=== PATIENT | male | born 1955 | race Caucasian/White ===

== ENCOUNTER → 2017-01-16 | Outpatient (CLI) | payer BC ==
[~2017-01-16] MED LIST: ALEVE220 MG PO; AMLODIPINE BESY10 MG PO; ASPIR 8181 M1 PO; ATORVASTATIN CA20 MG PO; CHLORTHALIDONE25 MG PO; ENALAPRIL MALEA20 MG PO; FLEXERIL10 MG PO; GABAPENTIN600 MG PO; PERCOCET 7.51 TABLET PO; TYLENOL EXTRA500 MG PO; VASOTEC20 MG PO
== END | disposition home or self-care (01) ==
DX: M17.12 Unilateral primary osteoarthritis, left knee (principal); R26.2 Difficulty in walking, not elsewhere classified; M25.562 Pain in left knee; M25.662 Stiffness of left knee, not elsewhere classified; M62.81 Muscle weakness (generalized)
CPT/HCPCS: 97110 GP; 97150 GO; 97161 GP; 97165 GO

== ENCOUNTER 2017-01-29 08:40 | Inpatient (IN) | payer BC ==
[~2017-01-29] VITALS: Ht 185.4 cm; Wt 110.0 kg
[2017-01-29 09:24] VITALS: BP 11/77
[2017-01-29 14:20] LABS: HEMATOCRIT 33.2 % (38.0-50.0); MCH 29.2 PG (29.0-34.0); MCHC 32.8 G/DL (30.0-36.0); MEAN PLAT.VOLUME 12.2 uM^3 (9.0-12.4); PLATELET COUNT 177 K/uL (156-360); RBC DIS.WIDTH-CV 14.1 % (11.8-14.6); RBC DIS.WIDTH-SD 45.8 % (39-53); RED BLOOD COUNT 3.73 M/uL (4.00-5.50)
[2017-01-29 15:35] VITALS: BP 123/78
[2017-01-29 20:22] VITALS: BP 128/75
[2017-01-29 23:45] VITALS: BP 138/80
[2017-01-30 04:00] VITALS: BP 126/78
[2017-01-30 07:10] LABS: HEMATOCRIT 35.1 % (38.0-50.0); MCV 89.1 FL (86-99)
[2017-01-30 07:54] LABS: ANION GAP 7 MEQ/L (2-14); CHLORIDE 104 MEQ/L (99-109); GFR ESTIMATE (CALCULATED) > 59 mL/min/; GLUCOSE 128 mg/dL (70-99); POTASSIUM 4.2 MEQ/L (3.7-5.4); SAMPLE HEMOLYSIS CHECK 0; SAMPLE ICTERIC CHECK 0; SAMPLE LIPEMIA CHECK 0; SODIUM 136 MEQ/L (136-147); UREA NITROGEN (BUN) 14 mg/dL (9-23)
[2017-01-30 08:00] VITALS: BP 139/82
[2017-01-30 12:00] VITALS: BP 128/77
[2017-01-30 15:48] VITALS: BP 138/80
[2017-01-30 20:31] VITALS: BP 124/76
[2017-01-30 23:43] VITALS: BP 137/81
[2017-01-31 04:49] VITALS: BP 141/80
[2017-01-31 06:47] LABS: HEMATOCRIT 33.8 % (38.0-50.0); MCV 86.9 FL (86-99)
[2017-01-31 07:09] LABS: ANION GAP 9 MEQ/L (2-14); CHLORIDE 106 MEQ/L (99-109); GFR ESTIMATE (CALCULATED) > 59 mL/min/; GLUCOSE 98 mg/dL (70-99); POTASSIUM 3.9 MEQ/L (3.7-5.4); SAMPLE HEMOLYSIS CHECK 0; SAMPLE ICTERIC CHECK 0; SAMPLE LIPEMIA CHECK 0; SODIUM 136 MEQ/L (136-147); UREA NITROGEN (BUN) 14 mg/dL (9-23)
[2017-01-31 08:00] VITALS: BP 143/81
[2017-01-31] MEDS ORDERED: DOCUSATE SODIU100 MG PO (08:22)
[2017-01-31] MEDS ORDERED: ENDOCET 5-3251 EACH PO (08:22)
[2017-01-31] MEDS ORDERED: LOVENOX40 MG/0.4 SC (08:22)
[2017-01-31] MEDS ORDERED: CELECOXIB200 MG PO (08:22)
[2017-01-31 12:27] VITALS: BP 114/60
[2017-01-31 15:23] VITALS: BP 111/61
== END 2017-01-31 15:49 | DRG 470 ==
LOC: 2SOUTH → 3WEST 15:16
PROVIDERS: Orthopaedic Surgery; Physician Assistant
PROC: 0SRD0J9 Replacement of Left Knee Joint with Synthetic Substitute, Cemented, Open Approach (ICD-10-PCS; principal; 2017-01-29)
DX: M17.12 Unilateral primary osteoarthritis, left knee (principal); E78.00 Pure hypercholesterolemia, unspecified; I10 Essential (primary) hypertension; Z87.891 Personal history of nicotine dependence; Z83.3 Family history of diabetes mellitus; Z82.49 Family history of ischemic heart disease and other diseases of the circulatory system
CPT/HCPCS: 73560; 80048; 85014; 85018; 85027; 97530 GP; C1713; J0690; J1170; J1650; J2250; J2405; J3010; J7050

== ENCOUNTER 2017-08-06 22:06 | Inpatient (IN) | payer BC ==
[~2017-08-06] VITALS: Ht 185.4 cm; Wt 122.5 kg
[~2017-08-06 22:06] MED LIST changes: +ASPIRIN81 M2 PO; +CELEBREX200 MG PO; +CELECOXIB200 MG PO; +DOCUSATE SODIU100 MG PO; +ENDOCET 5-3251 EACH PO; +LOVENOX40 MG/0.4 SC
[2017-08-07 09:52] VITALS: BP 112/66
[2017-08-07 14:23] LABS: HEMATOCRIT 33.5 % (38.0-50.0); HEMOGLOBIN 10.9 G/DL (12.5-16.6); MCH 29.1 PG (29.0-34.0); MCHC 32.5 G/DL (30.0-36.0); MCV 89.6 FL (86-99); PLATELET COUNT 202 K/uL (156-360); RBC DIS.WIDTH-CV 13.6 % (11.8-14.6); RBC DIS.WIDTH-SD 44.8 % (39-53); RED BLOOD COUNT 3.74 M/uL (4.00-5.50); WHITE BLOOD COUNT 11.1 K/uL (4.1-10.2)
[2017-08-07 16:04] VITALS: BP 114/63
[2017-08-07 19:46] VITALS: BP 118/63
[2017-08-07 23:26] VITALS: BP 127/60
[2017-08-08 04:24] VITALS: BP 126/63
[2017-08-08 04:39] LABS: HEMATOCRIT 33.3 % (38.0-50.0); HEMOGLOBIN 11.3 G/DL (12.5-16.6); MCV 87.4 FL (86-99)
[2017-08-08 05:00] LABS: CHLORIDE 108 mEq/L (99-109); POTASSIUM 4.4 mEq/L (3.7-5.4); SODIUM 135 mEq/L (136-147)
[2017-08-08 05:02] LABS: GLUCOSE 129 mg/dL (70-99)
[2017-08-08 05:06] LABS: GFR ESTIMATE (CALCULATED) > 59 mL/min/ (58.99-99999)
[2017-08-08 05:07] LABS: UREA NITROGEN (BUN) 20 mg/dL (9-23)
[2017-08-08 07:42] VITALS: BP 138/72
[2017-08-08] MEDS ORDERED: ENDOCET 5-3251 EACH PO (07:47)
[2017-08-08] MEDS ORDERED: LOVENOX40 MG/0.4 SC (07:47)
== END 2017-08-08 18:08 | disposition home or self-care (01) | DRG 488 ==
LOC: ENRESERV 22:06 → 2SOUTH 08-07 08:51 → ENRESERV 08-07 13:48 → 2SOUTH 08-07 13:53 → 3EAST 08-07 15:52
PROVIDERS: Orthopaedic Surgery
DX: M17.12 Unilateral primary osteoarthritis, left knee (principal); Z96.652 Presence of left artificial knee joint; I10 Essential (primary) hypertension; E78.00 Pure hypercholesterolemia, unspecified; T84.022A Instability of internal right knee prosthesis, initial encounter
CPT/HCPCS: 73560; 80048; 85014; 85018; 85027; 90686; 94799; 97530 GP; J0131; J0690; J1100; J1650; J2250; J2405; J2795; J3010; J7030; J7050